=== PATIENT | female | born 1955 | race African-American/Black ===

== ENCOUNTER 2019-09-04 16:33 | Inpatient (IN) | payer OTHER, MEDICARE ==
[~2019-09-04] VITALS: Ht 170.2 cm; Wt 90.3 kg
[~2019-09-04 16:33] MED LIST: ACYCLOVIR 400400 MG PO; ALPRAZOLAM 0.50.5 MG; AMARYL2 MG; AMBIEN 10 MG TA10 MG; ANASPAZ0.125 MG; ASPIRIN EC81 M1; CELEXA 20 MG TA20 M1; CLARITIN10 M2; DOXYCYCLINE 10100 M1; FLUCONAZOLE 10100 MG; GLUCOPHAGE1000 MG; GYNODIOL0.5 MG PO; HYDROXYCHLOROQ200 M1; JANUVIA100 MG; LEVAQUIN 500 M500 M2; LEVOTHYROXINE0.05 MG; MICONAZOLE 7100 MG; MULTIVITAMINS1 EAC7; NORCO 7.5-3251 EACH PO; PRILOSEC 20 MG20 MG; PYRIDIUM100 MG; SIMVASTATIN20 MG; SUPRAX400 MG PO
[2019-09-04 16:37] VITALS: BP 140/56
[2019-09-04 17:02] LABS: ABSOLUTE NEUTROPHILS 12.9 thou/uL (1.4-8.2); BASOPHILS 0.6 % (0.0-2.0); EOSINOPHILS 0.3 % (0.0-3.0); HEMATOCRIT 41.2 % (37.0-47.0); HEMOGLOBIN 13.2 gm/dL (12.0-15.0); MCH 29.2 pg (26.0-34.0); MCHC 32.1 g/dL (28.0-37.0); MCV 90.9 fL (80.0-100.0); MONOCYTES 5.3 % (1.0-8.0); PLATELET COUNT 231 thou/uL (150-400); POLYS 86.8 % (36.0-66.0); RBC 4.53 mil/uL (4.20-5.00); RDW 13.7 % (10.5-14.5); WBC 14.9 thou/uL (4.0-11.0)
[2019-09-04 17:09] LABS: CALCIUM 8.5 mg/dL (8.5-10.1); CREATININE 0.7 mg/dL (0.6-1.0); POTASSIUM 3.8 mmol/L (3.5-5.1)
[2019-09-04 17:15] LABS: ALBUMIN 3.5 g/dL (3.4-5.0); TOTAL BILIRUBIN 0.4 mg/dL (<0.1-1.0); TOTAL PROTEIN 7.7 g/dL (6.4-8.2)
[2019-09-04 19:39] VITALS: BP 135/63
[2019-09-04] MEDS ORDERED: ABILIFY 2 MG2 M1 PO (19:57)
[2019-09-04] MEDS ORDERED: C-10001000 MG PO (19:57)
[2019-09-04] MEDS ORDERED: LIPITOR10 MG PO (19:58)
[2019-09-04] MEDS ORDERED: CEFPODOXIME PR100 MG PO (19:58)
[2019-09-04] MEDS ORDERED: CEPHALEXIN500 MG PO (19:59)
[2019-09-04] MEDS ORDERED: CLOBETASOL EMOL15 GM TOP (20:00)
[2019-09-04] MEDS ORDERED: CYANOCOBALAMIN IM (20:02)
[2019-09-04] MEDS ORDERED: CYCLOBENZAPRINE5 MG PO (20:03)
[2019-09-04] MEDS ORDERED: DULOXETINE HCL60 MG PO (20:04)
[2019-09-04] MEDS ORDERED: D MANNOSE PO (20:04)
[2019-09-04 20:05] VITALS: BP 135/63
[2019-09-04] MEDS ORDERED: NEXIUM40 MG PO (20:05)
[2019-09-04] MEDS ORDERED: ESTRACE1 MG PO (20:06)
[2019-09-04] MEDS ORDERED: ACID REDUCER20 MG PO (20:08)
[2019-09-04] MEDS ORDERED: ESTRACE42.5 GM VAG (20:08)
[2019-09-04] MEDS ORDERED: FENOFIBRATE145 M1 PO (20:09)
[2019-09-04] MEDS ORDERED: FISH OIL 1,0001 EAC9 PO (20:10)
[2019-09-04 20:11] LABS: URINE BILIRUBIN NEGATIVE (Negative); URINE BLOOD NEGATIVE (Negative); URINE CLARITY CLEAR; URINE COLOR YELLOW; URINE GLUCOSE-RANDOM* NEGATIVE (Negative); URINE KETONES NEGATIVE (Negative); URINE LEUKOCYTES-REFLEX 2+ (Negative); URINE NITRITE-REFLEX POSITIVE (Negative); URINE PROTEIN (DIPSTICK) NEGATIVE (Negative); URINE UROBILINOGEN 0.2 E.U./dl (0.2-1.0)
[2019-09-04] MEDS ORDERED: NEURONTIN100 MG PO (20:11)
[2019-09-04] MEDS ORDERED: MUCUS ER600 M1 PO (20:13)
[2019-09-04] MEDS ORDERED: BIOTIN800 MCG PO (20:14)
[2019-09-04] MEDS ORDERED: PLAQUENIL200 MG PO (20:14)
[2019-09-04] MEDS ORDERED: HYDROXYZINE HCL25 M2 PO (20:15)
[2019-09-04] MEDS ORDERED: OCTAGAM 10% VIA20 ML IV (20:19)
[2019-09-04] MEDS ORDERED: LEVO-T25 MCG PO (20:20)
[2019-09-04] MEDS ORDERED: LINZESS290 MCG PO (20:22)
[2019-09-04] MEDS ORDERED: HIPREX1 GM PO (20:23)
[2019-09-04 20:24] VITALS: BP 148/66
[2019-09-04] MEDS ORDERED: URIBEL CAPSULE1 EACH PO (20:24)
[2019-09-04] MEDS ORDERED: MILK OF MA2400 MG/11 PO (20:25)
[2019-09-04] MEDS ORDERED: OXYBUTYNIN 5 MG5 M2 PO (20:26)
[2019-09-04] MEDS ORDERED: SINGULAIR 10 MG10 M1 PO (20:26)
[2019-09-04] MEDS ORDERED: PYRIDIUM200 MG PO (20:28)
[2019-09-04] MEDS ORDERED: OZEMPIC0.25 MG/0. SUBQ (20:28)
[2019-09-04] MEDS ORDERED: RESTASIS1 EACH OPHTHALMIC (20:29)
[2019-09-04] MEDS ORDERED: ZANTAC 150MG T150 M1 PO (20:29)
[2019-09-04] MEDS ORDERED: QUINAPRIL HCL20 MG PO (20:29)
[2019-09-04] MEDS ORDERED: SUPER THERAVIT1 EACH PO (20:30)
[2019-09-04] MEDS ORDERED: VICTOZA 3-0.6 MG/0.1 SUBQ (20:30)
[2019-09-04] MEDS ORDERED: AMBIEN 10 MG TA10 MG PO (20:31)
[2019-09-04 20:35] LABS: CASTS None Seen /LPF (None Seen); SQUAMOUS 4-10 Moderate /LPF (0-3); WBC CLUMPS Moderate (None Seen)
[2019-09-04 20:36] LABS: URINE RBC 0-2 Rare /HPF (0-2)
[2019-09-04 20:37] LABS: CRYSTALS None Seen /LPF (None Seen)
[2019-09-04 23:02] LABS: PROTIME 9.8 Seconds (9.3-11.4)
[2019-09-05] VITALS (10 sets, daily range): BP systolic 106–131; BP diastolic 51–78
--- NOTE | 2019-09-05 03:40 | NUR ---
PT ARRIVED ON UNIT FROM ER AT 2030. FROM HOME ADMITTED WITH APPENDICITIS. PLAN FOR LAP APPY 09/05. DILAUDID PROVIDING PAIN RELIEF. ZOFRAN NAUSEA RELIEF. AMBULATING TO BATHROOM INDEPENDENTLY. RESTING COMFORTABLY. CALL LIGHT WITHIN REACH. WILL CONTINUE TO PROVIDE FREQUENT OBSERVATION.
[2019-09-05 05:37] LABS: HEMATOCRIT 40.2 % (37.0-47.0); MCH 29.1 pg (26.0-34.0); MCHC 32.3 g/dL (28.0-37.0); RBC 4.47 mil/uL (4.20-5.00); RDW 13.6 % (10.5-14.5); WBC 15.2 thou/uL (4.0-11.0)
[2019-09-05 05:44] LABS: ALBUMIN 3.2 g/dL (3.4-5.0); CALCIUM 8.8 mg/dL (8.5-10.1); CREATININE 0.6 mg/dL (0.6-1.0); MAGNESIUM 2.5 mg/dL (1.8-2.4); POTASSIUM 4.1 mmol/L (3.5-5.1)
--- NOTE | 2019-09-05 11:25 | NUR ---
PT ALERT XS 4. PT AMBULATORY W/O ASSISTIVE DEVICES TOOK SHOWER THIS AM. PT TO HAVE APPENDECTOMY THIS AFTERNOON AT 1500 PT REMAINS NPO.
--- NOTE | 2019-09-05 13:41 | NUR ---
PT TAKEN TO PRE-OP FOR APPENDECTOMY AT THIS TIME NO PAIN OR RESP DISTRESS.
--- NOTE | 2019-09-05 13:45 | NUR ---
CALLED DR DOZIER AND HE SAID OKAY TO GIVE IV FAMOTIDINE AND IV ABT.
--- NOTE | 2019-09-05 17:00 | NUR ---
ASSESSMENT-PT LIVES AT HOME WITH HER . BOTH ARE INDEPENDENT. PT VOICES NO CONCERNS RELATED TO DC AT THIS TIME ONCE MEDICALLY READY. PT HAVING LAP APPE THIS AFTERNOON. NO DC NEEDS ANTICIPATED.
[2019-09-05 19:37] LABS: HEMATOCRIT 39.3 % (37.0-47.0); HEMOGLOBIN 12.7 gm/dL (12.0-15.0); MCH 28.9 pg (26.0-34.0); MCHC 32.2 g/dL (28.0-37.0); MCV 89.6 fL (80.0-100.0); RBC 4.39 mil/uL (4.20-5.00); RDW 13.9 % (10.5-14.5); WBC 18.9 thou/uL (4.0-11.0)
--- NOTE | 2019-09-05 19:47 | NUR ---
AT THIS TIME PATIENT IS STILL IN SURGERY. AND SISTER WAITING IN HER ROOM.
[2019-09-05 19:55] LABS: ALBUMIN 2.5 g/dL (3.4-5.0); CALCIUM 8.4 mg/dL (8.5-10.1); CREATININE 0.6 mg/dL (0.6-1.0); PHOSPHORUS 3.6 mg/dL (2.5-4.9)
[2019-09-05 20:04] LABS: POTASSIUM 4.4 mmol/L (3.5-5.1)
--- NOTE | 2019-09-05 20:19 | NUR ---
DR DOZIER HERE AND EXPLAINED THAT PATIENT WAS MOVED TO ICU TO AND SISTER.
[2019-09-06] VITALS (10 sets, daily range): BP systolic 82–138; BP diastolic 46–67
[2019-09-06 05:51] LABS: HEMATOCRIT 36.4 % (37.0-47.0); HEMOGLOBIN 11.6 gm/dL (12.0-15.0); MCH 28.9 pg (26.0-34.0); MCHC 31.8 g/dL (28.0-37.0); MCV 90.9 fL (80.0-100.0); RBC 4.01 mil/uL (4.20-5.00); WBC 15.4 thou/uL (4.0-11.0)
[2019-09-06 06:06] LABS: ALBUMIN 2.3 g/dL (3.4-5.0); CALCIUM 8.1 mg/dL (8.5-10.1); CREATININE 0.9 mg/dL (0.6-1.0); PHOSPHORUS 4.2 mg/dL (2.5-4.9); POTASSIUM 4.8 mmol/L (3.5-5.1)
--- NOTE | 2019-09-06 09:46 | EKG ---
[address] [place] [address] ELECTROCARDIOGRAM REPORT Name: JOY ANDERSON Room #: 245-P ADM IN M.R.#: [id number] Admission: 09/04/19 Attend Phys: Berto Kemp MD Discharge: Date of : 59 Report #: [id number] THIS REPORT FOR: //name// [facility] ED Test Date: 2019-09-04 Test Time: 17:41:46 Pat Name: JOY ANDERSON Department: Room: [facility] Gender: F [employer]: ZACARIAS : 1955 Requested By: Omaira Flower Order Number: [id number] MD: Temo Fowler Measurements Intervals [place] Rate: 64 P: 51 [place]: 194 QRS: 52 QRSD: 95 T: 66 QT: 432 QTc: 446 Interpretive Statements Sinus rhythm No significant abnormality No previous ECG available for comparison Electronically Signed On 09-06-2019 9:46:02 LINE DANCER by Temo Fowler [email or web address] <ELECTRONICALLY SIGNED> By: Temo Fowler MD, [facility] 09/06/19 0946 1741 1741 Temo Fowler MD, FACC /EPI
--- NOTE | 2019-09-06 10:04 | O ---
[address] [address] OPERATIVE REPORT Name: JOY ANDERSON Room #: 245-P ADM IN M.R.#: [id number] Admission: 09/04/19 Attend Phys: Berto Kemp MD Discharge: Date of : 59 Report #: [id number] THIS REPORT FOR: //name// CC: Oleg Hair DATE OF SERVICE: 09/05/2019 PROCEDURES PERFORMED: 1. Laparoscopic lysis of adhesions for greater than 1 hour. 2. Laparoscopic converted to open appendectomy. 3. Open lysis of adhesions for greater than 30 minutes. 4. Segment 5 liver mass wedge biopsy. PREOPERATIVE DIAGNOSES: 1. Acute appendicitis. 2. Hypogammaglobulinemia. 3. Sjogren's syndrome. 4. Diabetes mellitus. 5. Morbid obesity. POSTOPERATIVE DIAGNOSES: 1. Severe nonperforated acute appendicitis with several fecalith. 2. Severe intra-abdominal adhesions. 3. Segment 5 liver mass. SURGEON: Dr. Collins Pierre. PHARMACIST HOSPITAL: None. ANESTHESIA: 1. General 2. Local. ESTIMATED BLOOD LOSS: 600 mL. COMPLICATIONS: None. SPECIMENS: 1. Appendix. 2. Segment 5 liver mass wedge biopsy sent for frozen. INDICATIONS: The patient is a very pleasant lady with acute appendicitis identified on CT scan. The patient has immunosuppression from the above-stated diseases. She was consented for laparoscopic appendectomy, possible open. [address] [address] OPERATIVE REPORT Name: JOY ANDERSON Room #: 245-P [facility] IN M.R.#: [id number] Admission: 09/04/19 Attend Phys: Berto Kemp MD Discharge: Date of : 59 Report #: [id number] The risks, benefits, and alternatives of the procedure were discussed with the patient preoperatively. The risks discussed included but were not limited to the risk of bleeding, infection, wound infection, postoperative abscess, postoperative staple line leak, conversion to open, damage to any intraabdominal anatomy, need for further resection such as ileocecectomy or right hemicolectomy, damage to small bowel, large bowel, kidney, liver or spleen, blood vessels, nerves, etc., need for further hospitalization, need for future hospitalization, need for future procedures, postoperative ileus, anesthesia (cardiac, pulmonary and neurologic type complications), and . The patient had the opportunity to ask questions. All questions were answered to the best of my ability. At the end of the discussion, the patient wished to proceed with the surgery. DESCRIPTION OF PROCEDURE: After informed consent was obtained as above, the patient was taken to the operating room and placed in the supine position. General anesthesia was induced. Preprocedure antibiotics were administered. Her anterior abdomen was prepped and draped in the usual sterile fashion and a timeout was performed. A 5-mm supraumbilical incision was made. The Veress needle was inserted with successful creation of a pneumoperitoneum with one attempt. A 5-mm port was passed. This was successful with one attempt. Lighted laparoscope was inserted and immediately it was apparent that the patient had an abdomen full of adhesions. The right upper quadrant had the free space. I placed a 5-mm port there. Using a mixture of blunt dissection and laparoscopic scissors, I began taking down the adhesions between the omentum, small bowel, and anterior abdominal peritoneal cavity lining. The patient had very dense adhesions in the midline in the lower abdomen. The adhesions were taken down towards the suprapubic region far enough to place a third 5-mm port. The procedure continued by lysing adhesions to get down to the right lower quadrant where the cecum laid. Once to the cecum, there were dense adhesions between the small bowel and the cecum as well as the small bowel on the lateral sidewall and the typical adhesions between the cecum and the lateral sidewall. Careful dissection was employed to free up the cecum as best as possible. However, the appendix was still not in visualization. The cecum was mobilized by taking down the white line of Toldt laterally and looking for the appendix in a retrocecal position. On the CT scan the appendix was located at the normal position, coming off the end of the cecum, and projecting medially. The appendix was able to be identified directly underneath the terminal ileum; however, it was extremely friable and difficult to visualize given its retrocecal position and its position directly underneath the terminal ileum. We had spent over an hour lysing adhesions and we were not making any progress laparoscopically with the appendectomy. Therefore, the decision was made to convert to an open procedure. A midline exploratory laparotomy incision was made. The incision was carried down to the fascia using electrocautery. The fasciotomy was extended cephalad and medially. The patient had dense adhesions along the anterior abdominal wall [address] [address] OPERATIVE REPORT Name: JOY ANDERSON KITTY Room #: 245-P [facility] IN M.R.#: [id number] Admission: 09/04/19 Attend Phys: Berto Kemp MD Discharge: Date of : 59 Report #: [id number] in this region. We had to use extreme caution not to damage any bowel. The adhesions were taken down in an open fashion using Metzenbaum scissors and retraction. We did take down adhesions in order to extend our fasciotomy in both directions. These were very dense, thick adhesions. We were successful in lysing the adhesions without injuring any bowel. The Bookwalter retractor was set up. The cecum was brought into the field of view and the appendix was palpable. We were able to pull the appendix up from underneath the cecum. The appendix had perforated with the manipulation of the surgery. I do not believe that there was any preoperative perforation or abscess. It did perforate, I think only with surgical manipulation. The appendix was in the process to be immobilized when there was a sudden onset of a small pulsatile arterial bleeder from the mesentery. This was difficult to visualize given that it was deep within the mesentery, not easy to see. There was an artery and a vein bleeding, which further exacerbated the difficulty of visualizing it. The artery and vein was within the cavity within the mesentery, making it difficult. Due to not wanting to ligate a large branch or cause any worsening bleeding, this region was packed and pressure was held. The pressure was held for 5 minutes and the bleeding did stop. Pressure was held for 5 more minutes to be safe. The packs were left in place. The packs were eventually removed and the region was completely hemostatic and new packs were placed just to be safe, while we advanced the procedure. The mesoappendix was clamped with a right angle, transected, and suture ligated with silk suture. The appendix was perforated in the body; however, the base of the appendix was intact. It was successfully stapled with a laparoscopic JERMAINE blue load stapler. Staple line was intact. It was oversewn with Vicryl suture to be safe. The right lower quadrant was then irrigated and suctioned out with copious amounts of warm irrigation. Hemostasis was definitely present. There was no gross contamination of the right lower quadrant. All free fluid was suctioned out. The abdominal cavity was explored and there was identified to be a firm white mass on segment 5 of the liver; therefore, frozen section was obtained by using electrocautery and a 15 blade scalpel. The surface of the liver was then cauterized. Hemostasis was present. Surgicel was placed on the biopsy site that we never had any serious bleeding from this biopsy. Hemostasis was present at the liver and at the right lower quadrant where appendectomy was performed. A drain was placed through the right upper quadrant port site incision, passed down into the right lower quadrant around the cecum and into the pelvis. The drain was sutured into place using nylon stitch. The abdomen was then irrigated out one more time. Hemostasis was ensured. The abdomen was definitely hemostatic. The fascia was then closed in the midline using #1 PDS in a continuous running fashion. The subcutaneous tissue was irrigated out. The skin was reapproximated using lindsey. The Prevena wound VAC was applied. The [address] [address] OPERATIVE REPORT Name: JOY ANDERSON Room #: 245-P [facility] IN M.R.#: [id number] Admission: 09/04/19 Attend Phys: Berto Kemp MD Discharge: Date of : 59 Report #: [id number] patient tolerated the procedure well. She was stable throughout. She was extubated and transferred to the PACU in stable condition. <ELECTRONICALLY SIGNED> By: Collins Pierre MD 09/06/19 1004 33 18 Collins Pierre MD /nt
--- NOTE | 2019-09-06 10:04 | HC ---
[facility] [place] [address] CONSULTATION Name: JOY ANDERSON Room #: 245-P ADM IN M.R.#: [id number] Admission: 09/04/19 Attend Phys: Berto Kemp MD Discharge: Date of : 59 Report #: [id number] THIS REPORT FOR: //name// CC: Oleg Hair DATE OF SERVICE: 09/05/2019 CONSULTING PHYSICIAN: Dr. Pierre. REASON FOR CONSULTATION: Appendicitis. ASSESSMENT: 1. Acute appendicitis. 2. Sjogren's syndrome. 3. Hypogammaglobulinemia. 4. Diabetes mellitus. 5. On aspirin. 6. Hyponatremia. RECOMMENDATIONS: 1. Thank you for the consultation. I will follow along. 2. Planning for laparoscopic appendectomy, possible open today. 3. IV antibiotics. 4. IV fluid resuscitation while n.p.o. 5. N.p.o. 6. IV analgesics and antiemetics. 7. Comorbidities per primary team. HISTORY OF PRESENT ILLNESS: The patient is a very pleasant 64-year-old female who presented to the hospital due to right lower quadrant abdominal pain that began late Thursday, early Thursday. Shortly after the pain started, she began vomiting. The pain was so severe that woke her up from sleep. It is constant and located in the right lower quadrant. She thought it was foot poisoning, so she tried to tough it out; however, the pain got so severe, she could not take it, so she presented to the ER. She was also unable to keep any fluids down. She reports this is the first episode of having any pain like this. She endorses subjective fevers, but denies chills, night sweats, chest pain or shortness of air. She has had regular nonbloody stools. PAST MEDICAL HISTORY: 1. Constipation. 2. Sjogren's syndrome. 3. Hypogammaglobulinemia. She gets IVIG 1 time per month, called [facility]. Her last injection was 2 weeks ago. If she does not receive it, she reports that she gets all types of infections. [facility] [address] [place] [address] CONSULTATION Name: JOY ANDERSON KITTY Room #: 245-P [facility] IN M.R.#: [id number] Admission: 09/04/19 Attend Phys: Berto Kemp MD Discharge: Date of : 59 Report #: [id number] 4. Diabetes mellitus. 5. Hyperlipidemia. 6. On aspirin 325 mg. PAST SURGICAL HISTORY: 1. Colonoscopy, 3 years ago, normal. 2. Hysterectomy. 3. Bilateral salpingo-oophorectomy. 4. Splint procedure. SOCIAL HISTORY: Denies use of alcohol, tobacco or recreational drugs. 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 FAMILY HISTORY: Denies coagulopathy or malignancy. REVIEW OF SYSTEMS: CONSTITUTIONAL: No fever. No chills. HEENT: Denies blurring of vision, double vision, headaches, hearing loss, sinus drainage or sore throat. Denies blurring of vision, double vision, headaches, hearing loss, sinus drainage or sore throat. CARDIOVASCULAR: Denies chest pain, palpitations, orthopnea or paroxysmal nocturnal dyspnea. RESPIRATORY: Denies cough, wheezing, hemoptysis, or shortness of air. GASTROINTESTINAL: See above and below. GENITOURINARY: Denies dysuria or hematuria or kidney stones. No urinary frequency, urgency or incontinence. Denies dysuria or hematuria or kidney stones. No urinary frequency, urgency or incontinence. MUSCULOSKELETAL: No joint pain. No muscle pain. NEUROLOGICAL: Denies tremor, stroke or seizure. Denies tremor, stroke or seizure. HEMATOLOGIC AND LYMPHATICS: Denies easy bruising, easy bleeding or enlarged lymph nodes. SKIN: No rash or ulceration. ENDOCRINE: No heat or cold intolerance PSYCHIATRIC: Denies depression, anxiety, or schizophrenia. IMMUNE: See above and below. PHYSICAL EXAMINATION: VITAL SIGNS: Temperature 36.9, pulse 62, respiratory rate 20, blood pressure 148/66, pulse ox is 97% on room air. GENERAL: No apparent distress, alert and oriented x3. HEENT: PERRLA, EOMI, MMM, NCAT NECK: Supple. No LAD CARDIOVASCULAR: Regular rhythm and rate. Hemodynamically stable. Normal capillary refill. Regular rhythm and rate. Hemodynamically stable. Normal capillary refill. [address] [address] CONSULTATION Name: JOY ANDERSON Room #: 245-P [facility] IN M.R.#: [id number] Admission: 09/04/19 Attend Phys: Berto Kemp MD Discharge: Date of : 59 Report #: [id number] PULMONARY: Nonlabored. Clear to auscultation bilaterally ABDOMEN: Soft, tender to palpation in the right lower quadrant and in the left lower quadrant. No guarding, rebound or rigidity. No hernias appreciated. She is obese. EXTREMITIES: Calves soft, nontender, no edema. SKIN: No rashes or bruises. PSYCHIATRIC: Normal mood and affect Normal mood and affect NEUROLOGICAL: Grossly intact. CN II-XII grossly intact. MUSCULOSKELETAL: 5/5 strength in upper extremities and lower extremities bilaterally LYMPHATICS: No cervical, inguinal, or supraclavicular lymphadenopathy. LABORATORY DATA: Sodium 125, potassium 3.8, creatinine 0.7, magnesium 1.6, total bilirubin 0.4, AST is 19, ALT is 30, alkaline phosphatase is 65, lipase is 58. White blood count is 14.9, hemoglobin is 13.2, hematocrit is 41.2, platelet is 231. IMAGING: CT of the abdomen and pelvis, impression: 1. Acute appendicitis without evidence of perforation or abscess. The appendix measures 1.7 cm in diameter with multiple appendicolith. 2. A 5 mm right middle lobe pulmonary nodule was noted. If at low risk, no further imaging followup necessary. If at high risk, the followup noncontrast chest CT is recommended in 1 year based on the 2017 questionnaire criteria. <ELECTRONICALLY SIGNED> By: Collins Pierre MD 09/06/19 1004 0837 0914 Collins Pierre MD /nt
--- NOTE | 2019-09-06 12:00 | NUR ---
PATIENT ADMITTED TO UNIT AT THIS TIME. STILL COMPLAINING OF PAIN TO MID ABDOMEN. MID ABDOMINAL INCISION DRESSING INTACT. DRAINING SOME BLOOD. SHE IS ALERT ORIENTED X4. WILL CONT WITH PLAN OF CARE
[2019-09-07 00:33] VITALS: BP 108/68
[2019-09-07 05:27] VITALS: BP 142/80
--- NOTE | 2019-09-07 05:27 | NUR ---
ASSUMED CARE AROUND 1914. AXOX4. PREVENA VAC TO MID ABD AND RUBIO DRAIN INTACT DRAINING SS DRAINAGE. PERSISTENT PAIN, MANAGED PER MD ORDER. AMBULATED ON THE UNIT WITH . TOLERATED FAIR THEN STARTED C/O MALAISE. ADVISE TO SPACE OUT ACITIVITIES AND TAKE BREAKS. PT VERBALIZES UNDERSTANDING. NO S/S ACUTE DISTRESS NOTED OR REPORTED AT THIS TIME. WILL CONT TO MONITOR FOR ANY CHANGES IN CONDITION.
[2019-09-07 06:19] LABS: HEMATOCRIT 31.8 % (37.0-47.0); MCH 29.1 pg (26.0-34.0); MCHC 31.5 g/dL (28.0-37.0); MCV 92.1 fL (80.0-100.0); RBC 3.45 mil/uL (4.20-5.00); RDW 14.2 % (10.5-14.5)
[2019-09-07 06:34] LABS: ALBUMIN 2.2 g/dL (3.4-5.0); CALCIUM 8.8 mg/dL (8.5-10.1); CREATININE 0.7 mg/dL (0.6-1.0); PHOSPHORUS 2.6 mg/dL (2.5-4.9); POTASSIUM 4.2 mmol/L (3.5-5.1)
[2019-09-07 08:19] VITALS: BP 116/65
[2019-09-07 17:46] VITALS: BP 107/61
--- NOTE | 2019-09-07 19:02 | NUR ---
PATIENT DOING WELL TODAY. MEDICATED WITH HYDROCODONE X 2. SCHEDULED TYLENOL GIVEN. VOIDING WITHOUT DIFFICULTY. NEW ORDER FOR CLEAR LIQUIDS THIS AFTERNOON. DRANK SOME CHICKEN BROTH, JELLO, POPSICLE, APPLE JUICE AND TOLERATING WELL. VERY HYPO BOWELL SOUNDS HEARD. DENIED FLATUS. MOM GIVEN WITH NO RESULTS. AMBULATED IN MENG X 2. SAT UP IN CHAIR X 2. UP TO BATHROOM WITH STANDBY ASSIST WITH IV PUMP. IN GOOD SPIRITS. HAVE MONITORED CLOSELY.
[2019-09-07 19:17] VITALS: BP 138/63
--- NOTE | 2019-09-08 07:35 | NUR ---
ASSUMED CARE AROUND 1914. AXOX4. PREVENA VAC TO MID ABD CDI. RUBIO DRAIN INTACT DRAINING SS DRAIN. PERSISTENT PAIN TO ABD. KPAD ORDERED. NO S/S ACUTE DISTRESS NOTED OR REPORTED AT THIS TIME. CARE TRANSFERRED TO INCOMING RN AT THIS TIME.
[2019-09-08 08:10] VITALS: BP 126/67
[2019-09-08 13:17] LABS: HEMATOCRIT 29.2 % (37.0-47.0); HEMOGLOBIN 9.5 gm/dL (12.0-15.0); MCH 29.3 pg (26.0-34.0); MCHC 32.5 g/dL (28.0-37.0); MCV 90.1 fL (80.0-100.0); RBC 3.24 mil/uL (4.20-5.00); RDW 14.2 % (10.5-14.5); WBC 10.2 thou/uL (4.0-11.0)
[2019-09-08 13:44] LABS: ALBUMIN 2.1 g/dL (3.4-5.0); CALCIUM 9.2 mg/dL (8.5-10.1); CREATININE 0.6 mg/dL (0.6-1.0); PHOSPHORUS 2.4 mg/dL (2.5-4.9); POTASSIUM 3.5 mmol/L (3.5-5.1)
--- NOTE | 2019-09-08 15:17 | NUR ---
CARE TEAM INDICATED THAT PT IS PROGRESSING SLOWLY. IT IS ANTICIPATED THAT PT WILL HAVE NO NEEDS UPON DC. CM TO FOLLOW SHOULD ANY DC NEEDS ARISE.
[2019-09-08 15:27] VITALS: BP 108/64
--- NOTE | 2019-09-08 17:33 | NUR ---
PT A&OX4, VSS, PAIN IN BLE. PAIN MEDICATION GIVEN TO MANAGE. WOUND DRESSING CHANGE COMPLETED. PATIENT WENT DOWN TO SURGERY BUT REFUSED TODAY. FAMILY IN TODAY WITH CONCERS, DOCTOR NOTIFIED AND FAMILY AGREES TO MEET DOCTOR AT 9 AM. PATIENT IS FLAT AND STATED TO THIS NURSE, " HE CANT BELIEVE HE LET HIMSELF GET LIKE THIS." NO SIGNS OF DISTRESS. WILL CONTINUE TO MONITOR.
--- NOTE | 2019-09-08 17:57 | NUR ---
PT A&OX4, VSS, PAIN IN ABDOMEN. PT DENIES N/V/D. PATIENT HAD BM TODAY. DRAINS CHECKED AND RUBIO EMPTIED. PATIENT TOLERATED CLEAR LIQUIDS AND ADVANCED TO FULL. WILL CONTINUE TO MONITOR, NO SIGNS OF DISTRESS.
[2019-09-08 19:25] VITALS: BP 129/70
--- NOTE | 2019-09-09 05:29 | NUR ---
Assessments completed. pt a&ox4. independent in room. walks in hallway 2x with . pain controlled with current regimen. pt is hoping to advanced diet today and possibly be d/c home. v/s stable. no s/s of distress. will cont to monitor
--- NOTE | 2019-09-09 08:10 | NUR ---
ASSUMED CARE OF PATIENT APPROX 36130. PT A&OX4, VSS, PAIN IN ABDOMEN. APPROX 0800 PATIENT C/O OF SOA. VITALS WNL, SATS 96%, LUNGS CLEAR, NON PRODUCTIVE COUGH. NASAL CANNULA AT BEDSIDE. WILL CONTINUE TO MONITOR.
[2019-09-09 08:19] VITALS: BP 123/70
[2019-09-09 09:34] LABS: HEMATOCRIT 27.4 % (37.0-47.0); HEMOGLOBIN 8.9 gm/dL (12.0-15.0); MCH 29.2 pg (26.0-34.0); MCHC 32.5 g/dL (28.0-37.0); RBC 3.04 mil/uL (4.20-5.00); RDW 14.1 % (10.5-14.5); WBC 8.5 thou/uL (4.0-11.0)
[2019-09-09 09:58] LABS: CALCIUM 8.6 mg/dL (8.5-10.1); CREATININE 0.5 mg/dL (0.6-1.0); PHOSPHORUS 3.3 mg/dL (2.5-4.9); POTASSIUM 3.4 mmol/L (3.5-5.1)
--- NOTE | 2019-09-09 11:07 | PATH ---
[facility] [place] [address] PATHOLOGY RPT PROCEDURE Name: JOY BUENROSTRO Room #: 463-P ADM IN M.R.#: [id number] Admission: 09/04/19 Date of : 59 Discharge: Report #: [id number] Path Case #: [id number] [facility] Accession Number: [id number] . 01 Material submitted: . PART A: liver - LIVER BIOPSY,FS PART B: appendix - APPENDIX,FS . 01 Clinical history: . Appendicitis . 02 Frozen section diagnosis: . FROZEN SECTION DIAGNOSIS; A1FS. Liver "liver biopsy": - Atypical glands, cannot rule out malignancy. . B1FS. Appendix "appendectomy": - Inflamed swollen appendix with whitish areas final diagnosis after permanent sections. . These findings were discussed with Dr. Lachelle Pierre and a written report was placed in the patient's chart. (SHA:[facility]; 09/06/2019) . FROZEN SECTION GROSS DESCRIPTION: A. Specimen received fresh labeled "Joy Buenrostro #2 liver biopsy" consists of two pieces of tissue measuring 0.6 x 0.4 x 0.4 cm. In these pieces of tissue are two firm white areas that measure up to 0.5 cm. This specimen is entirely frozen and submitted in cassette labeled A1. . B. Specimen received fresh labeled "Joy Buenrostro Appendix" consists of an appendix that measures 6.0 x 3.0 x 2.0 cm. The outer surface has few adhesions. The appendix appears markedly swollen and hemorrhagic. A suture is present identifying the appendiceal opening. The entire specimen is inked with black ink. On serial section there is a hemorrhagic lumen with surrounding indurated fibroadipose tissue. (SHA:belen; 09/06/2019) . Frozen section performed at [facility], [address] [place], [place] [address] , [place] [address]. ZSA/QTP . 02 Diagnosis: A. Liver, wedge biopsy: - Liver parenchyma with mild chronic inflammation, mild to moderate steatosis, and focal fibrotic nodule, 0.5 cm. . B. [address], [address] [place] [address] PATHOLOGY RPT PROCEDURE Name: JOY BUENROSTRO Room #: 463-P ADM IN M.R.#: [id number] Admission: 09/04/19 Date of : 59 Discharge: Report #: [id number] Path Case #: [id number] - Acute appendicitis and periappendicitis. . (TIGIST:mercedez; 09/08/2019) MBR 09/08/2019 1232 Local . 02 Electronically signed: . Missael Gramajo MD, Pathologist NPI- [id number] . 01 Gross description: . PLEASE SEE FROZEN SECTION FOR GROSS DESCRIPTION . B. Steel Turner sections are submitted in B1-B2. (SDY; 09/06/2019) SYU/QTP 09/06/2019 1502 Local . 02 Pathologist provided ICD-10: K76.0, K76.9, K35.80 . 02 CPT . 796181, 958494, 957220, [id number] Specimen Comment: A courtesy copy of this report has been sent to [phone] Specimen Comment: [phone] Specimen Comment: Report sent to / DR PACHECO Performed at: [address] [facility], [place], [place] [id number] MD Constantin Moses MD Phone: [phone] Performed at: [address] [facility] [id number] MD Gely Santiago MD Phone: [phone]
--- NOTE | 2019-09-09 14:45 | NUR ---
Nutrition: Received RD consult for suggestions as pt with poor intake on full liquids, but also lactose intolerant. Admit: appendicitis. S/p lap converted to open appendectomy on 09/05. Minimal appetite to be expected postsurgery. Was on clear liquids 09/06, advanced to full liquids last night. Pt cannot do milk, no ice cream and no tomato soup. Does agree to do yogurt and plan to trial variety of Ensure drinks tonight at dinner with Apple Ensure Clear and Vanilla Ensure Enlive as these supplements are suitable for those with lactose intolerance. Will add both to dinner and informed pt to call kitchen tomorrow letting her know her desired preference to continue several times per day. Anticipate appetite improvement w/ recovery. Low nutrition risk otherwise.
[2019-09-09 15:24] VITALS: BP 117/74
[2019-09-09 20:02] VITALS: BP 108/65
--- NOTE | 2019-09-10 03:52 | NUR ---
Assessments completed. pt a&ox4. no changes overnight. pain controlled with current regimen. pt stated that she usually has questions to ask the doctors in the morning but because they come in so early and she's usually still sleepy, she is unable to ask those questions. nurse wrote some of the questions on pt's white board. no s/s of distress. will cont to monitor
[2019-09-10 07:52] VITALS: BP 136/77
[2019-09-10 15:47] VITALS: BP 120/62
--- NOTE | 2019-09-10 17:59 | NUR ---
PT ALERT AND ORIENTED TIMES FOUR. VSS, IVF INFUSING PER ORDER. PT C/O PAIN PRN PAIN MEDICATIONS GIVEN WITH SOME RELIEF. RUBIO DRAIN TO BULB SUCTION. MIDLINE PREVENA INTACT. PT TOLERATED REG DIET. PT UP AMBULATING AROUND THE UNIT WITH STEADY GAIT. PT SLOWLY PROGRESSING TOWRADS POC GOALS.
[2019-09-10 19:10] VITALS: BP 121/72
--- NOTE | 2019-09-10 22:09 | NUR ---
PATIENT TRANSFERED FROM ROOM 4 AT 1850 WALKING IN THE COMPANY OF HER AND PIPELINER FROM . DENIES PAIN. ALERT AND ORIENTED X4. PLEASANT AND COOPERATIVE.
--- NOTE | 2019-09-11 03:20 | NUR ---
PATIENT ALERT AND ORIENTED X4. UP TO BATHROOM W/O ASSISTANCE. NO C/O NAUSEA. IVF INFUSING W/O COMPLICATION. AT BEDSIDE UNTIL LATE EVENING. PATIENT ATE FOOD FROM [employer] W/O UPSET. MEDICATGED WITH OXY IR AND SCHEDULED TYLENOL WELL REQUESTED AMBIEN. BS MONITORED PER ORDER. PREVENA DRESSING D/I. DRAINS MONITORED. SLEEPING WELL THROUGHOUT THE NIGHT. PATIENT LOOKING FORWARD TO DISCHARGE. WILL MONITOR.
[2019-09-11 04:32] LABS: HEMATOCRIT 28.9 % (37.0-47.0); HEMOGLOBIN 9.4 gm/dL (12.0-15.0); MCH 29.2 pg (26.0-34.0); MCHC 32.5 g/dL (28.0-37.0); MCV 89.9 fL (80.0-100.0); RBC 3.21 mil/uL (4.20-5.00); RDW 14.3 % (10.5-14.5); WBC 8.1 thou/uL (4.0-11.0)
[2019-09-11 04:51] LABS: CALCIUM 8.9 mg/dL (8.5-10.1); CREATININE 0.7 mg/dL (0.6-1.0); POTASSIUM 3.2 mmol/L (3.5-5.1)
--- NOTE | 2019-09-11 06:27 | NUR ---
PATIENT DOES NOT FEEL GOOD ABOUT GOING HOME TODAY. STILL HAVING PAIN ISSUES, UNABLE TO GET IT UNDER CONTROL TO THE POINT WHERE SHE FEELS COMFORTABLE LEAVING. STILL TAKING IVP DILAUDID ALONG WITH OXY IR AND SCHEDULED TYLENOL. STATED SHE WILL SPEAK WITH THE DOCTOR TODAY ON ROUNDS, HOWEVER, SHE REALLY WANTS TO SPEAK WITH DR. DOZIER.
[2019-09-11 06:58] VITALS: BP 138/79
[2019-09-11 15:15] VITALS: BP 121/68
--- NOTE | 2019-09-11 15:52 | NUR ---
A/O, calm and pleasant; VSS, afebrile; compains of pain in abdomen, pain medication given and worked; Complains of heartburn, Maalox given; patient got up and walked in the hallway by self. Resting in the chairm , with eyes closed and chest up and down. Lab reviewed, will keep monitoring.
[2019-09-11 19:31] VITALS: BP 146/82
--- NOTE | 2019-09-12 06:30 | NUR ---
PATIENT ALERT AND ORIENTED X4. UP ADLIB IN ROOM. MEDICATED FOR PAIN THROUGHOUT THE NIGHT WITH A LITTLE BETTER RESULTS - RATE OF 01/14 TO 02/14. IVF INFUSING W/O COMPLICATION. BS MONITORED PER ORDER. SLEPT BETTER DURING THE NIGHT. RESTING QUIETLY. WILL MONITOR.
[2019-09-12 07:12] VITALS: BP 137/77
--- NOTE | 2019-09-12 09:33 | NUR ---
SW reviewed chart and spoke with nursing and attending physician. Pt [facility] to [facility] from . Pt is progressing towards goals for discharge. Pt will discharge home when medically stable. SW is following to assist as needed with discharge planning.
[2019-09-12] MEDS ORDERED: DIFLUCAN150 MG PO (12:21)
[2019-09-12] MEDS ORDERED: OXYCODONE HCL10 MG PO (12:21)
[2019-09-12] MEDS ORDERED: CEFUROXIME250 MG PO (12:21)
[2019-09-12 13:49] VITALS: BP 137/77
--- NOTE | 2019-09-12 15:16 | NUR ---
ASSUMED CARE OF PATIENT AT 0715, PATIENT ALERT AND ORIENTED X 4. PATIENT UP AD JAZZ. PATIENT C/O PAIN WITH ABDOMEN AREA, SHE RECEIVED OXYCODONE 2 TABLETS AROUND NOON, PAIN LEVEL 7/10, WITH PARTIAL RELIEF 5/10. PATIENT HAS RIGHT FOREARM IV WITH NS AT 80CC/HR, PATIENT RECEIVED 1 IIV ANTIBIOTIC THIS SHIFT. DR FOSTER HERE TO SEE THE PATIENT, WILL DISCHARGE TO HOME WITH SELFCARE. DR DOZIER HERE THIS AM, REMOVED RUBIO DRAIN AND WOUND VAC, APPLIED SURGICAL DRESSING TO ABDOMEN AREA. RIGHT FOREARM IV REMOVED PRIOR TO DISCHARGE. DISCHARGE PAPER WORK AND ALL PERSONAL BELONGINGS SENT WITH THE PATIENT.
[2019-09-13] MEDS ORDERED: OXYCODONE HCL10 MG PO (13:08)
[2019-09-13] MEDS ORDERED: AUGMENTIN 875-1 EACH PO (13:08)
== END 2019-09-12 15:59 | disposition home or self-care (01) | DRG 335 ==
LOC: ER 16:33 → ICU 19:03 → EROBS 19:03 → 4S 19:03 → ICU 09-05 20:04 → 4W 09-06 12:08 → 4N 09-10 18:58 → ENTRNSPT 09-12 15:10 → EDTRNSPTSTS 09-12 15:11 → 4N 09-12 15:59
PROVIDERS: Emergency Medicine; Nurse Practitioner Acute Care; Nurse Practitioner Family; Surgery; ADMIT Hospitalist
PROC: 0D9H00Z Drainage of Cecum with Drainage Device, Open Approach (ICD-10-PCS; principal; 2019-09-05)
PROC: 0WJG4ZZ Inspection of Peritoneal Cavity, Percutaneous Endoscopic Approach (ICD-10-PCS; principal; 2019-09-05)
PROC: 0FB00ZX Excision of Liver, Open Approach, Diagnostic (ICD-10-PCS; principal; 2019-09-05)
PROC: 0DNW0ZZ Release Peritoneum, Open Approach (ICD-10-PCS; principal; 2019-09-05)
PROC: 0DNW4ZZ Release Peritoneum, Percutaneous Endoscopic Approach (ICD-10-PCS; principal; 2019-09-05)
PROC: 0DTJ0ZZ Resection of Appendix, Open Approach (ICD-10-PCS; principal; 2019-09-05)
DX: K35.80 Unspecified acute appendicitis (principal); E43 Unspecified severe protein-calorie malnutrition; E87.1 Hypo-osmolality and hyponatremia; N39.0 Urinary tract infection, site not specified; D80.1 Nonfamilial hypogammaglobulinemia; A18.4 Tuberculosis of skin and subcutaneous tissue; D84.9 Immunodeficiency, unspecified; D62 Acute posthemorrhagic anemia; K56.7 Ileus, unspecified; K66.0 Peritoneal adhesions (postprocedural) (postinfection); E11.9 Type 2 diabetes mellitus without complications; G51.0 Bell's palsy; R91.1 Solitary pulmonary nodule; M35.00 Sjogren syndrome, unspecified; E78.5 Hyperlipidemia, unspecified; E66.01 Morbid (severe) obesity due to excess calories; I10 Essential (primary) hypertension; F32.9 Major depressive disorder, single episode, unspecified; F41.9 Anxiety disorder, unspecified; E03.9 Hypothyroidism, unspecified; E83.42 Hypomagnesemia; K59.00 Constipation, unspecified; R16.0 Hepatomegaly, not elsewhere classified; B96.20 Unspecified Escherichia coli [E. coli] as the cause of diseases classified elsewhere; K76.0 Fatty (change of) liver, not elsewhere classified; E87.6 Hypokalemia; Z79.2 Long term (current) use of antibiotics; Z90.710 Acquired absence of both cervix and uterus; Z79.82 Long term (current) use of aspirin; Z79.84 Long term (current) use of oral hypoglycemic drugs; Z79.899 Other long term (current) drug therapy; Z68.31 Body mass index [BMI] 31.0-31.9, adult; Z90.722 Acquired absence of ovaries, bilateral; Z87.440 Personal history of urinary (tract) infections; Z83.3 Family history of diabetes mellitus; Z82.61 Family history of arthritis; Z82.5 Family history of asthma and other chronic lower respiratory diseases; Z87.891 Personal history of nicotine dependence
CPT/HCPCS: 10047; 10078; 10100; 10790; 50010; 50101; 50249; 50331; 50411; 50455; 50555; 50558; 50739; 50740; 50953; 51412; 51489; 52265; 53307; 53310; 53312; 54022; 54118; 56462; 56524; 56525; 56526; 56668; 62110; 62900; 70005

== ENCOUNTER 2019-09-13 18:32 | Inpatient (IN) | payer OTHER, MEDICARE ==
[~2019-09-13] VITALS: Ht 170.2 cm; Wt 108.4 kg
[2019-09-13 18:32] VITALS: BP 160/76
[~2019-09-13 18:32] MED LIST changes: +ABILIFY 2 MG2 M1 PO; +ACID REDUCER20 MG PO; +AMBIEN 10 MG TA10 MG PO; +AUGMENTIN 875-1 EACH PO; +BIOTIN800 MCG PO; +C-10001000 MG PO; +CEFPODOXIME PR100 MG PO; +CEFUROXIME250 MG PO; +CEPHALEXIN500 MG PO; +CLOBETASOL EMOL15 GM TOP; +CYANOCOBALAMIN IM; +CYCLOBENZAPRINE5 MG PO; +D MANNOSE PO; +DIFLUCAN150 MG PO; +DULOXETINE HCL60 MG PO; +ESTRACE1 MG PO; +ESTRACE42.5 GM VAG; +FENOFIBRATE145 M1 PO; +FISH OIL 1,0001 EAC9 PO; +HIPREX1 GM PO; +HYDROXYZINE HCL25 M2 PO; +LEVO-T25 MCG PO; +LINZESS290 MCG PO; +LIPITOR10 MG PO; +MILK OF MA2400 MG/11 PO; +MUCUS ER600 M1 PO; +NEURONTIN100 MG PO; +NEXIUM40 MG PO; +OCTAGAM 10% VIA20 ML IV; +OXYBUTYNIN 5 MG5 M2 PO; +OXYCODONE HCL10 MG PO; +OZEMPIC0.25 MG/0. SUBQ; +PLAQUENIL200 MG PO; +PYRIDIUM200 MG PO; +QUINAPRIL HCL20 MG PO; +RESTASIS1 EACH OPHTHALMIC; +SINGULAIR 10 MG10 M1 PO; +SUPER THERAVIT1 EACH PO; +URIBEL CAPSULE1 EACH PO; +VICTOZA 3-0.6 MG/0.1 SUBQ; +ZANTAC 150MG T150 M1 PO
[2019-09-13 20:22] LABS: HEMATOCRIT 23.9 % (37.0-47.0); HEMOGLOBIN 7.6 gm/dL (12.0-15.0); MCH 28.8 pg (26.0-34.0); MCHC 31.9 g/dL (28.0-37.0); MCV 90.1 fL (80.0-100.0); PLATELET COUNT 330 thou/uL (150-400); RBC 2.65 mil/uL (4.20-5.00); RDW 14.8 % (10.5-14.5); WBC 14.5 thou/uL (4.0-11.0)
[2019-09-13 20:51] LABS: CREATININE 0.6 mg/dL (0.6-1.0); POTASSIUM 3.8 mmol/L (3.5-5.1); TOTAL BILIRUBIN 0.3 mg/dL (<0.1-1.0)
[2019-09-13 20:55] LABS: CALCIUM 9.3 mg/dL (8.5-10.1)
[2019-09-13 21:22] LABS: ABSOLUTE NEUTROPHILS 12.5 thou/uL (1.4-8.2)
[2019-09-13 21:23] LABS: PLATELET ESTIMATE NORMAL
[2019-09-13 21:59] LABS: INR 1.2
[2019-09-13 22:51] LABS: HEMATOCRIT 22.9 % (37.0-47.0); HEMOGLOBIN 7.2 gm/dL (12.0-15.0)
[2019-09-13 23:05] LABS: APTT 25.5 Seconds (24.5-32.8)
[2019-09-13 23:13] VITALS: BP 137/73
[2019-09-14] VITALS (45 sets, daily range): BP systolic 84–127; BP diastolic 40–84
[2019-09-14 05:46] LABS: HEMOGLOBIN 6.7 gm/dL (12.0-15.0); MCHC 31.5 g/dL (28.0-37.0); RDW 14.6 % (10.5-14.5)
[2019-09-14 05:52] LABS: CALCIUM 8.1 mg/dL (8.5-10.1); POTASSIUM 4.5 mmol/L (3.5-5.1)
[2019-09-14 05:55] LABS: HEMATOCRIT 21.2 % (37.0-47.0); MCH 28.8 pg (26.0-34.0); MCV 91.3 fL (80.0-100.0); RBC 2.32 mil/uL (4.20-5.00); WBC 21.2 thou/uL (4.0-11.0)
[2019-09-14 14:58] LABS: HEMATOCRIT 23.8 % (37.0-47.0); HEMOGLOBIN 7.7 gm/dL (12.0-15.0)
--- NOTE | 2019-09-14 17:10 | EKG ---
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 : 1955 Requested By: Levar Marin Order Number: [id number] MD: Temo Fowler Measurements Intervals Armstrong Rate: 66 P: 35 IA: 164 QRS: 9 QRSD: 90 T: 33 QT: 411 QTc: 431 Interpretive Statements Sinus rhythm No significant abnormality Compared to ECG 09/04/2019 17:41:46 No significant changes Electronically Signed On 09-14-2019 17:09:37 [employer] by Temo Fowler [email or web address] <ELECTRONICALLY SIGNED> By: Temo Fowler MD, [facility] 09/14/19 1709 1837 36 Temo Fowler MD, FACC /EPI
[2019-09-14 20:46] LABS: HEMATOCRIT 21.7 % (37.0-47.0); HEMOGLOBIN 7.2 gm/dL (12.0-15.0)
[2019-09-15] VITALS (23 sets, daily range): BP systolic 115–146; BP diastolic 48–71
[2019-09-15 05:51] LABS: HEMATOCRIT 20.3 % (37.0-47.0); MCV 90.3 fL (80.0-100.0); RBC 2.25 mil/uL (4.20-5.00)
[2019-09-15 05:53] LABS: HEMOGLOBIN 6.5 gm/dL (12.0-15.0); MCHC 32.1 g/dL (28.0-37.0); RDW 15.1 % (10.5-14.5); WBC 17.9 thou/uL (4.0-11.0)
[2019-09-15 06:18] LABS: ALBUMIN 1.8 g/dL (3.4-5.0); CALCIUM 7.6 mg/dL (8.5-10.1); CREATININE 0.7 mg/dL (0.6-1.0); POTASSIUM 4.5 mmol/L (3.5-5.1); TOTAL BILIRUBIN 0.4 mg/dL (<0.1-1.0); TOTAL PROTEIN 5.5 g/dL (6.4-8.2)
[2019-09-15 09:28] LABS: APTT 28.4 Seconds (24.5-32.8); FIBRINOGEN 527.4 mg/dL (210-360); INR 1.1; PROTIME 11.4 Seconds (9.3-11.4)
[2019-09-15 18:50] LABS: HEMATOCRIT 22.1 % (37.0-47.0); HEMOGLOBIN 7.2 gm/dL (12.0-15.0)
[2019-09-16 00:11] VITALS: BP 122/60
[2019-09-16 04:31] VITALS: BP 156/71
[2019-09-16 05:55] LABS: HEMATOCRIT 25.4 % (37.0-47.0); HEMOGLOBIN 8.2 gm/dL (12.0-15.0); MCH 29.4 pg (26.0-34.0); MCHC 32.3 g/dL (28.0-37.0); MCV 91.1 fL (80.0-100.0); RBC 2.79 mil/uL (4.20-5.00); RDW 14.8 % (10.5-14.5); WBC 20.4 thou/uL (4.0-11.0)
[2019-09-16 06:26] LABS: ALBUMIN 1.9 g/dL (3.4-5.0); CALCIUM 8.1 mg/dL (8.5-10.1); CREATININE 0.5 mg/dL (0.6-1.0); POTASSIUM 4.2 mmol/L (3.5-5.1); TOTAL BILIRUBIN 0.7 mg/dL (<0.1-1.0); TOTAL PROTEIN 5.8 g/dL (6.4-8.2)
[2019-09-16 08:09] VITALS: BP 139/70
[2019-09-16 15:40] VITALS: BP 127/70
[2019-09-16 20:46] VITALS: BP 124/70
[2019-09-17 03:41] VITALS: BP 131/75
[2019-09-17 05:31] LABS: HEMATOCRIT 24.2 % (37.0-47.0); HEMOGLOBIN 7.8 gm/dL (12.0-15.0); MCH 29.3 pg (26.0-34.0); MCHC 32.2 g/dL (28.0-37.0); RBC 2.66 mil/uL (4.20-5.00); RDW 15.2 % (10.5-14.5); WBC 18.2 thou/uL (4.0-11.0)
[2019-09-17 08:15] VITALS: BP 103/76
[2019-09-17 12:42] VITALS: BP 109/62
[2019-09-17 18:36] VITALS: BP 119/61
[2019-09-18 00:48] LABS: BE(vivo) 1.2 mmol/L (-2 to +3); HCO3 25.4 mmol/L (22.0-26.0); PCO2 38.1 mmHg (35.0-45.0); PO2 90.9 mmHg (80.0-100.0); pH 7.441 (7.360-7.450); sO2 97.2 % (92.0-98.0)
[2019-09-18 03:57] LABS: HEMOGLOBIN 8.4 gm/dL (12.0-15.0); MCH 29.4 pg (26.0-34.0); MCHC 32.4 g/dL (28.0-37.0); MCV 90.8 fL (80.0-100.0); RBC 2.86 mil/uL (4.20-5.00); RDW 14.9 % (10.5-14.5); WBC 16.2 thou/uL (4.0-11.0)
[2019-09-18 04:01] LABS: ALBUMIN 2.1 g/dL (3.4-5.0); CALCIUM 8.7 mg/dL (8.5-10.1); CREATININE 0.6 mg/dL (0.6-1.0); POTASSIUM 3.8 mmol/L (3.5-5.1); TOTAL BILIRUBIN 0.6 mg/dL (<0.1-1.0); TOTAL PROTEIN 6.9 g/dL (6.4-8.2)
[2019-09-18 05:52] VITALS: BP 113/63
[2019-09-18 16:00] VITALS: BP 124/70
[2019-09-18 20:15] VITALS: BP 115/56
[2019-09-19 04:41] LABS: HEMATOCRIT 22.9 % (37.0-47.0); HEMOGLOBIN 7.4 gm/dL (12.0-15.0); MCH 29.1 pg (26.0-34.0); MCHC 32.2 g/dL (28.0-37.0); MCV 90.5 fL (80.0-100.0); RBC 2.53 mil/uL (4.20-5.00); RDW 14.9 % (10.5-14.5); WBC 11.3 thou/uL (4.0-11.0)
[2019-09-19 04:45] VITALS: BP 124/67
[2019-09-19 04:54] LABS: ALBUMIN 1.7 g/dL (3.4-5.0); CALCIUM 8.4 mg/dL (8.5-10.1); CREATININE 0.4 mg/dL (0.6-1.0); MAGNESIUM 1.6 mg/dL (1.8-2.4); POTASSIUM 3.6 mmol/L (3.5-5.1); TOTAL BILIRUBIN 0.5 mg/dL (<0.1-1.0); TOTAL PROTEIN 5.8 g/dL (6.4-8.2)
--- NOTE | 2019-09-19 06:55 | HC ---
[facility] [place] [address] CONSULTATION Name: JOY ANDERSON Room #: 205-P ADM IN M.R.#: [id number] Admission: 09/13/19 Attend Phys: Berto Kemp MD Discharge: Date of : 59 Report #: [id number] THIS REPORT FOR: //name// CC: Berto Nixon [facility] physician/PCP RAVEN KEEN DO REQUESTING PHYSICIAN: Berto Kemp MD REASON FOR CONSULTATION: Postop delayed bleeding. HISTORY OF PRESENT ILLNESS: The patient is a 64-year-old female who was admitted to the hospital back in about 09/04 with abdominal pain, found to have appendicitis. She went to surgery. They think it may have probed at the time of surgery. She had extensive lysis of adhesions in multiple areas. They also had seen some abnormalities in the liver, which she underwent a biopsy, I think, of segment 5. This came back revealing some scar tissue. The patient is known to have steatosis from the past. She had been at home and then prior to had readmission on 09/13, she had been having abdominal pain and some bloating. CAT scan here showed what appeared to be extensive subcapsular hematoma as well as peritoneal blood, particularly in the upper abdomen. There was also thought to be some active extravasation of contrast in the more anterior of the liver lacerations and possibly small amount into one or more of the posterior liver lacerations. The patient denies any new headaches, new swallowing troubles, diarrhea, constipation, abdominal trauma. She states that the ecchymosis on her lower legs have been present off and on for about 20 years. She also denies any use of her nonsteroidals such as aspirin that she had been on her fish oil since she went home. She has not taken any Advil new per any other type of medications. Here, her hemoglobin on admit was about 6.7. She has received a pint of blood and her hemoglobin is now 6.5, white count 17.9, platelets 339. PT and aPTT have been essentially normal. The patient denies any bleeding from her mouth, her nares, urinary. PAST MEDICAL HISTORY: Notable for the recent appendectomy with perforation and then also the extensive lysis of adhesions, liver biopsy. Also, history of hysterectomy some 20 years ago without bleeding. History of liver biopsy about 5 years ago without any bleeding. No bleeding with dental procedures. Also, has a history of recent elevated liver function test. Also, hepatic steatosis. 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 Also, history of Sjogren's, history of urinary difficulties, history of asthma, history of chronic sinusitis. FAMILY HISTORY: She says no one else in the family has had any bleeding disorders that she is aware including her siblings, children, mother and father. 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 PHYSICAL EXAMINATION: VITAL SIGNS: Height is 5 feet 7 inches, which is 170 cm. Weight 233 pounds, which is 101.2 kilograms. Temperature recent 99.4 at midnight. Blood pressure 135/54. O2 sat was 95%. Pulse 92. MOOD: She is alert and pleasant. NEUROLOGIC: Face is symmetric. Speech and thought pattern normal. She is moving arms and fingers well. HEAD AND NECK: Oropharynx is clear, without any petechia or bleeding. Nares without any signs of bleeding. LYMPHATICS: No enlarged lymph nodes in the supraclavicular or cervical region. ABDOMEN: Obese, slightly tender. She thinks it is actually maybe less full and less tender than yesterday. EXTREMITIES: Without clubbing or cyanosis. Note that she does have the ecchymosis on both lower extremities. LABORATORY DATA: Lab review here notable for creatinine of 0.7. Note that transaminases yesterday; on last admit AST was 19, on admit 161, today this morning is 2494. Total bilirubin normal, alkaline phosphatase 165. ALT was 30 last admit, 111 on admit, 2553 today. Albumin 1.7. INR this admit 1.2 with a protime of 12, APTT at 25.5. As mentioned above, white count 17.9; hemoglobin 6.5, was about 6.7 yesterday, has had a unit of blood. Platelets as mentioned above were normal. Differential without acute changes. ASSESSMENT AND PLAN: 1. Evidence of subcapsular hematoma and bleeding would include some possible extravasation into postop changes. We will repeat coags including PT, aPTT, thrombin time, fibrinogen and also platelet function analysis. Given the patient's past history of surgeries without bleeding and no active bleeding at the time of surgery, it is not likely related to that. It is possible that the patient could have a form of Von Willbrand to the delayed bleeding, though she did not have troubles in the past. We will check about ordering these miscellaneous tests though they may be hard to interpret with the current bleeding taking place and there is no family history reported. Transfuse as needed. 2. Elevated liver function test. We will consult GI. Await repeat imaging. 3. History of lupus, defer to others. 4. History of diabetes type 2, defer to others. 5. Hypertension and hyperlipidemia per others. We will follow with you. <ELECTRONICALLY SIGNED> By: Rakesh Schmid MD 09/19/19 0655 0907 1334 Rakesh Schmid MD /nt
[2019-09-19 07:30] VITALS: BP 142/70
[2019-09-19] MEDS ORDERED: OXYCODONE HCL10 MG PO (11:43)
[2019-09-19 12:15] VITALS: BP 133/64
[2019-09-19 12:35] VITALS: BP 142/70
[2019-09-19 14:57] VITALS: BP 142/70
== END 2019-09-19 16:00 | disposition home health service (06) | DRG 441 ==
LOC: ER 18:32 → ICU 22:45 → EROBS 22:45 → ICU 09-14 00:31 → 2N 09-16 14:55 → ENTRNSPT 09-19 11:53 → EDTRNSPTSTS 09-19 11:54 → 4S 09-19 12:12 → EDTRNSPT 09-19 15:34 → 4S 09-19 16:00
PROVIDERS: Emergency Medicine; Internal Medicine; Internal Medicine Gastroenterology; Internal Medicine Hematology & Oncology; Nurse Practitioner; Nurse Practitioner Acute Care; Nurse Practitioner Family; Surgery; ADMIT Hospitalist
PROC: B4121ZZ Fluoroscopy of Hepatic Artery using Low Osmolar Contrast (ICD-10-PCS; 2019-09-13)
PROC: 30233N1 Transfusion of Nonautologous Red Blood Cells into Peripheral Vein, Percutaneous Approach (ICD-10-PCS; principal; 2019-09-14)
DX: K76.89 Other specified diseases of liver (principal); G92 Toxic encephalopathy; K65.1 Peritoneal abscess; K66.1 Hemoperitoneum; S36.113A Laceration of liver, unspecified degree, initial encounter; D62 Acute posthemorrhagic anemia; D84.9 Immunodeficiency, unspecified; S36.112A Contusion of liver, initial encounter; D80.1 Nonfamilial hypogammaglobulinemia; E87.1 Hypo-osmolality and hyponatremia; E11.9 Type 2 diabetes mellitus without complications; M35.00 Sjogren syndrome, unspecified; G51.0 Bell's palsy; F32.9 Major depressive disorder, single episode, unspecified; X58.XXXA Exposure to other specified factors, initial encounter; F41.9 Anxiety disorder, unspecified; E03.9 Hypothyroidism, unspecified; I10 Essential (primary) hypertension; R79.89 Other specified abnormal findings of blood chemistry; E78.5 Hyperlipidemia, unspecified; K59.00 Constipation, unspecified; E66.9 Obesity, unspecified; K76.0 Fatty (change of) liver, not elsewhere classified; J45.909 Unspecified asthma, uncomplicated; J32.9 Chronic sinusitis, unspecified; R23.3 Spontaneous ecchymoses; Y92.89 Other specified places as the place of occurrence of the external cause; Z90.89 Acquired absence of other organs; Z90.710 Acquired absence of both cervix and uterus; Z90.721 Acquired absence of ovaries, unilateral; Z87.440 Personal history of urinary (tract) infections; Z79.82 Long term (current) use of aspirin; Z79.84 Long term (current) use of oral hypoglycemic drugs; Z79.891 Long term (current) use of opiate analgesic; Z79.899 Other long term (current) drug therapy; Y93.89 Activity, other specified; Y99.8 Other external cause status; Z68.37 Body mass index [BMI] 37.0-37.9, adult
CPT/HCPCS: 10078; 10081; 85076

== ENCOUNTER → 2020-02-09 | Outpatient (CLI) | payer OTHER, MEDICARE ==
[2020-02-09 09:02] LABS: CREATININE 0.7 mg/dL (0.6-1.0)
== END ==
LOC: CAT 01-23 10:51
PROVIDERS: ATTEND Surgery
DX: M79.81 Nontraumatic hematoma of soft tissue (principal); I70.0 Atherosclerosis of aorta; M51.36 Other intervertebral disc degeneration, lumbar region; M48.061 Spinal stenosis, lumbar region without neurogenic claudication; Z90.710 Acquired absence of both cervix and uterus; Z90.722 Acquired absence of ovaries, bilateral

== ENCOUNTER → 2020-06-13 | Outpatient (CLI) | payer OTHER, MEDICARE | LOC: CAT 09:04 | PROVIDERS: ATTEND Surgery | DX: K43.2 Incisional hernia without obstruction or gangrene (principal); K82.8 Other specified diseases of gallbladder; K76.89 Other specified diseases of liver ==

== ENCOUNTER → 2020-12-13 | Outpatient (CLI) | payer OTHER, MEDICARE ==
[~2020-12-13] MED LIST changes: +ACYCLOVIR 800800 MG PO; -AMBIEN 10 MG TA10 MG; +ASPIRIN EC325 M1 PO; +ATORVASTATIN CA10 MG PO; +FOLIC ACID1 MG PO; -GLUCOPHAGE1000 MG; +GLUCOPHAGE1000 MG PO; -HYDROXYCHLOROQ200 M1; +HYDROXYCHLOROQ200 M1 PO; +LORAZEPAM 0.50.5 MG PO; +METHENAMINE MAND1 G2 PO; +OZEMPIC1 MG/0.75 SUBQ; +SYNTHROID25 MC1 PO
== END ==
LOC: LAB 13:28
PROVIDERS: ATTEND Surgery
DX: Z01.812 Encounter for preprocedural laboratory examination (principal); Z20.822 Contact with and (suspected) exposure to COVID-19

== ENCOUNTER 2020-12-17 06:25 | Inpatient (IN) | payer OTHER, MEDICARE ==
[~2020-12-17] VITALS: Ht 160 cm; Wt 73.2 kg
[2020-12-17] VITALS (8 sets, daily range): BP systolic 103–129; BP diastolic 62–81
[2020-12-17 07:23] LABS: HEMATOCRIT 41.5 % (37.0-47.0); HEMOGLOBIN 13.4 gm/dL (12.0-15.0); MCH 30.5 pg (26.0-34.0); MCHC 32.2 g/dL (28.0-37.0); MCV 94.6 fL (80.0-100.0); RBC 4.39 mil/uL (4.20-5.00); RDW 14.2 % (10.5-14.5); WBC 7.1 thou/uL (4.0-11.0)
[2020-12-17 07:25] LABS: CALCIUM 9.2 mg/dL (8.5-10.1); CREATININE 0.9 mg/dL (0.6-1.0); POTASSIUM 4.2 mmol/L (3.5-5.1)
--- NOTE | 2020-12-17 08:10 | EKG ---
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 : 1955 Requested By: Abisai Joseph Order Number: [id number] MD: Temo Fowler Measurements Intervals [place] Rate: 70 P: 36 OK: 159 QRS: 19 QRSD: 87 T: 51 QT: 396 QTc: 428 Interpretive Statements Sinus rhythm Abnormal R-wave progression, early transition Baseline wander in lead(s) V1 Compared to ECG 09/13/2019 18:37:43 No significant changes Electronically Signed On 12-17-2020 8:10:24 CDT by Temo Fowler [email or web address] <ELECTRONICALLY SIGNED> By: Temo Fowler MD, [facility] 12/17/20809 2 2 Temo Fowler MD, [facility] /EPI
--- NOTE | 2020-12-17 15:15 | NUR ---
PT ADMITTED RELATED TO HERNIA REPAIR. CM REVIEWED CHART AND SPOKE WITH CARE TEAM. CM MET WITH PT AND SPOUSE AT BEDSIDE THIS DAY. PT APPEARED TO BE A&O X4. CM ROLE INTRODUCED. PT INDICATED SHE LIVES IN A HOUSE WITH HER SPOUSE WITH 2 STEPS TO ENTER AND NO STEPS INSIDE. 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 PT INDICATED SHE PLANS TO RETURN HOME ONCE MEDICALLY STABLE. CM TO FOLLOW INDICATED WITH DC PLANNING.
--- NOTE | 2020-12-17 17:07 | NUR ---
ASSUMED CARE OF PT XFER FORM SURGERY. PT ADMITTED POST SURGICAL FOR ABDOMINAL HERNIA REPAIR. PT IS A/OX4. ABD BINDER AND CDI DRESSING ON ABD AREA. SKIN INTACT WITHOUT TENTING. LUNGS CLEAR ALL CABEZAS, ABD TENDER X4 QUADS AITH ACTIVE BOWEL SOUNDS. CR<3SEC, FALL RISK SOCKS ON, DISTAL PULSES 2+X4.ASSESSMENT OTHERWISE UNREMARKABLE. PT HAS BEEN C/O ABD PAIN WAS GIVEN OXY WITH LITTLE TO NO RELIEF. CALL LIGHT AND NEEDS WITHIN REACH.
--- NOTE | 2020-12-17 20:02 | NUR ---
PT WAS BROUGHT UP FROM PACU AT 1343 THIS AFTERNOON AFTER ABDOMINAL HERNIA SURGERY. P HAS ABD BINDING AND 2-RUBIO DRAINS FROM THE MID ABD AREA. PT IS A/OX4. EYES PERRLS, SKIN INTACT, NO TENTING, W/D/P, LUNGS CLEAR ALL CABEZAS, BOWEL SOUNDS ACTIVE IN ALL QUADS. DISTAL PULSES 2+ X4, MOTOR SENSORY INTACT AND C/O PAIN THE THE ABD ALL OVER. PT WAS GIVEN PAIN RX. ASSESSMENT OTHERWISE UNRREMARKABLE. IV IN RIGHT HAND. CALL LIGHT AND OTHER NEEDS WITHIN REACH.
--- NOTE | 2020-12-18 06:00 | NUR ---
Pt. has had very little rest during the night. She c/o chronic abdominal pain and has been medicated for pain several times (see emar). C/o itching and Ivana EMG TECHNICIAN was called and order received for po benadryl (see cpoe). RUBIO drains to abdomen are intact. Midline incision dry and intact. Pt. did dangle at the bedside several times and did well.
[2020-12-18 06:01] LABS: HEMATOCRIT 35.2 % (37.0-47.0); MCH 30.7 pg (26.0-34.0); MCHC 32.4 g/dL (28.0-37.0); MCV 94.8 fL (80.0-100.0); RBC 3.72 mil/uL (4.20-5.00); RDW 14.2 % (10.5-14.5); WBC 8.1 thou/uL (4.0-11.0)
[2020-12-18 06:16] LABS: HEMOGLOBIN 11.4 gm/dL (12.0-15.0)
[2020-12-18 06:19] LABS: ALBUMIN 2.8 g/dL (3.4-5.0); CALCIUM 8.4 mg/dL (8.5-10.1); CREATININE 0.6 mg/dL (0.6-1.0); PHOSPHORUS 4.1 mg/dL (2.5-4.9); POTASSIUM 3.9 mmol/L (3.5-5.1)
[2020-12-18 07:48] VITALS: BP 104/62
--- NOTE | 2020-12-18 12:44 | NUR ---
Received awake on bed. Due medications given as prescribed, able to swallow meds w/o difficulty. On room air. Vital signs stable. On telemetry; no complains and signs of chest pain, crushing sensation and heaviness. Assisted in ADLs. On clear liquids- tolerating well; no nausea, no vomiting and no abdominal pain noted. With leiva in place- draining well; output measured and recorded accordingly. With R chest port- accessed; saline locked. With R wrist IV- LR at 100cc/hr, infusing well; on IV antibiotics. With abdominal post op wound- dressing C/D/I; with [address]- output measured and recorded accordingly. With abdominal binder in place. SCDs reapplied. Complained of pain, due PRN pain meds given as prescribed. Encouraged to ambulate- able to walk in the hallway with walker and gait belt; falls bundle in place; pt walked to with CROSSING SUPERVISOR Louisa. As per night RN, IV team informed re: chest port. To continue monitoring patient.
--- NOTE | 2020-12-18 14:56 | NUR ---
CARE TEAM INDICATED THAT PT IS PROGRESSING TOWARD GOAL OF DISCHARGE. WORKING TO GET DRAIN AND PAIN MANAGED. CM FOLLOWING REGARDING DC PLANNING.
[2020-12-18 15:25] VITALS: BP 106/69
[2020-12-18 20:05] VITALS: BP 132/74
--- NOTE | 2020-12-19 05:29 | NUR ---
Pt. did rest quietly during the night when checked on during frequent rounds. At the beginning of the shift she wanted hydrocodone for pain, but one tab of 5 mg ordered. Pt. voiced that she needed 10 mg because 5 mg was like taking a aspirin. New orders received (see cpoe). She has been voiding post leiva re- moval without difficulty. Up to the bathroom with standby assistance.
[2020-12-19 07:33] VITALS: BP 109/69
--- NOTE | 2020-12-19 18:25 | NUR ---
ASSUMED CARE OF PATIENT AT SHIFT CHNAGE; 0700. ASSESSMENT CHARTED. MEDICATIONS ADMINISTERED PER EMAR. VSS. PATIENT IS A&OX4, PLEASANT AND ABLE TO MAKE NEEDS KNOWN. AMBULATES AND TRANSFERS SBA TO BATHROOM; AMBULATED AROUND UNIT X3 AND TOLERATED WELL. C/O PAIN EXACERBATED WITH ACTIVITY RELIEVED X1 THIS SHIFT W IV PAIN MEDICATION AND MANAGED THROUGHOUT WITH PO HYDROCODONE. PATIENT STILL HAS RUBIO DRAINS X2, CONTINUING TO DRAIN THROUGHOUT SHIFT. HOSPITALIST INDICATED D/C OK AFTER REMOVING DRAINS HOWEVER STILL DRAINING QUITE A BIT. SURGEON NOTIFIED AND AGREED PATIENT READY FOR D/C IN 1 TO 2 DAYSP; WILL KEEP RUBIO DRAINS IN FOR NOW. WORKING ON PAIN MANANGEMENT AND PROGRESSING TOWARDS GOAL USING LESS IV PAIN MEDICATION. ADVANCED TO REGULAR DIET FOR DINNNER AND TOLERATING WELL SO FAR. PROGRESSING WELL TOWARD DISCHARGE. FALL PRECAUTIONS IN PLACE. WILL CONTINUE TO MONITOR AND ENDORSE TO NOC. TARUN.
[2020-12-19 19:38] VITALS: BP 115/57
--- NOTE | 2020-12-20 02:44 | NUR ---
PT IS A/O X4 AND IS UP SBA. ROOM AIR. SR/ST ON THE MONITOR. C/O PAIN AND INDIGESTION. PRN MEDICATION GIVEN DIRECTED. VSS. AFEBRILE. RUBIO DRAINS IN PLACE AND DRAINING RED DRAINAGE. ABDOMINAL BINDER IN PLACE. INCISION INTACT WITH NO DRAINAGE. CALL LIGHT IS WITHIN REACH. PT IS PROGRESSING TOWARDS PLAN OF CARE DC GOALS. WILL CONTINUE TO MONITOR.
[2020-12-20 07:00] VITALS: BP 130/75
--- NOTE | 2020-12-20 11:07 | PATH ---
[facility] [address] [place] [address] PATHOLOGY RPT PROCEDURE Name: JOY BUENROSTRO Room #: 454-P ADM IN M.R.#: [id number] Admission: 12/17/20 Date of : 59 Discharge: Report #: [id number] Path Case #: [id number] [facility] Accession Number: [id number] . 01 Material submitted: . hernia - HERNIA SAC . 01 Clinical history: . ABDOMINAL COMPONENT SEPARATION OPEN HERNIA REPAIR,VENTRAL VENTRAL INCISIONAL HERNIA . 02 Diagnosis: Hernia sac, repair: - Fibrovascular connective tissue and fibroadipose connective tissue with reactive changes, compatible with a hernia sac. (IUV:rosalva; 12/19/2020) QMS 12/19/2020 1543 Local . 02 Electronically signed: . Gely Santiago MD, Pathologist NPI- [id number] . 01 Gross description: . The specimen is received in formalin, labeled "Joy Buenrostro, hernia sac". Received are multiple segments of fibromembranous tissue with attached fibroadipose tissue measuring 15.4 x 7.5 x 2.5 cm in aggregate dimensions. No distinct nodules or lesions are noted grossly. The specimen is submitted representatively in cassette A1. (CAA; 12/18/2020) QA/[facility] 12/18/2020 1254 Local . 02 Pathologist provided ICD-10: K43.9 . 02 CPT . 677785 Specimen Comment: A courtesy copy of this report has been sent to [phone], [phone]- Specimen Comment: [phone] Specimen Comment: Report sent to / DR DOZIER Performed at: [address] [id number] MD Shaan Block MD Phone: [phone] Performed at: 02 [facility] [address] [place] [address] PATHOLOGY RPT PROCEDURE Name: JOY BUENROSTRO Room #: 454-P ADM IN M.R.#: [id number] Admission: 12/17/20 Date of : 59 Discharge: Report #: [id number] Path Case #: [id number] [address] [place] [address] [id number] MD Gely Santiago MD Phone: [phone]
[2020-12-20 15:20] LABS: ALBUMIN 2.5 g/dL (3.4-5.0); DIRECT BILIRUBIN < 0.1 mg/dL (<0.1-0.2); SGOT 42 U/L (15-37); SGPT 54 U/L (14-59); TOTAL BILIRUBIN 0.2 mg/dL (0.2-1.0); TOTAL PROTEIN 5.8 g/dL (6.4-8.2)
[2020-12-20 16:20] VITALS: BP 113/70
--- NOTE | 2020-12-20 16:29 | NUR ---
CARE TEAM INDICATED THAT PT IS PROGRESSING SLOWLY TOWARD GOAL OF DISCAHRGE. PT IS HAVING MORE OUTPUT FROM DRAIN AND PAIN ISN'T YET WELL CONTROLLED. CM FOLLOWING REGARDING DC PLANNING.
[2020-12-20 19:59] VITALS: BP 134/80
--- NOTE | 2020-12-20 20:35 | NUR ---
PATIENT ALERT/ORIENTED. COMPLAINS OF PAIN THROUGH OUT THE DAY, OTHERWISE FEELS WELL AND READY TO DISCHARGE JUST NERVOUS ABOUT PAIN CONTROL. AMBULATES IN ROOM AND HALLWAYS INDEPENDENTLY. GOOD APPETITE. MARKOS DRAINX2, EDUCATED PATIENT ON HOW TO EMPTY DRAINS SHE WOULD TOLD SHE WOULD DISCHARGE WITH THEM. PLAN FOR PATIENT TO DISCHARGE TOMORROW IF PAIN CAN BE ADEQUATELY MANAGED.
--- NOTE | 2020-12-21 05:00 | NUR ---
patient aox4 makes needs known.pain controlled this shift. abd incicision is proximal, no drainage, no s/s of infection noted this shift. two han drainage are intact. patient ambulates with steady gate in the room and hallway. patient encouraged fluids. patient in bed asleep at this time breathing regular and unlaboured.
[2020-12-21 07:44] VITALS: BP 122/77
[2020-12-21] MEDS ORDERED: PERCOCET 10-321 EAC1 PO (10:55)
--- NOTE | 2020-12-21 11:17 | NUR ---
Received awake on bed. Due medications given as prescribed, able to swallow meds w/o difficulty. On room air. Vital signs stable. On telemetry; no complains and signs of chest pain, crushing sensation and heaviness. Assisted in ADLs. On regular diet- tolerating well; no nausea, no vomiting and no abdominal pain noted. S/P hernia repair; midline incision C/D/I, no bleeding and no drainage noted; abdominal binder in place. On blood sugar monitoring, taken and recorded accordingly. Continent of bowel and bladder, able to go to the toilet independently. With L chest port, accessed- saline locked. Able to ambulate in the hallway. Complained of pain, due PRN pain meds given as prescribed. Pt seen and examined by Dr Hobbs- discharge orders made. To continue monitoring patient.
[2020-12-21 11:22] VITALS: BP 122/77
--- NOTE | 2020-12-21 11:55 | NUR ---
CARE TEAM INDICATED THAT PT IS MEDICALLY STABLE TO DC HOME THIS DAY. PT IS TO DC HOME TO SELF CARE. PT'S SPOUSE TO PROVIDE TRANSPORT HOME. NO OTHER CM INTERVENTION INDICATED. CASE CLOSED.
== END 2020-12-21 13:00 | disposition home or self-care (01) | DRG 335 ==
LOC: OR 06:25 → TBA 06:33 → OR 10:57 → 4W 13:58 → OR 13:59 → 4W 12-21 13:00
PROVIDERS: Anesthesiology; Hospitalist; ADMIT Surgery; ATTEND Surgery
PROC: 0DNU0ZZ Release Omentum, Open Approach (ICD-10-PCS; principal; 2020-12-17)
PROC: 0DNW0ZZ Release Peritoneum, Open Approach (ICD-10-PCS; principal; 2020-12-17)
PROC: 0WQF0ZZ Repair Abdominal Wall, Open Approach (ICD-10-PCS; principal; 2020-12-17)
PROC: 0WUF0JZ Supplement Abdominal Wall with Synthetic Substitute, Open Approach (ICD-10-PCS; principal; 2020-12-17)
DX: K43.2 Incisional hernia without obstruction or gangrene (principal); G92 Toxic encephalopathy; D80.1 Nonfamilial hypogammaglobulinemia; D62 Acute posthemorrhagic anemia; S36.112A Contusion of liver, initial encounter; M35.00 Sjogren syndrome, unspecified; E11.9 Type 2 diabetes mellitus without complications; K66.0 Peritoneal adhesions (postprocedural) (postinfection); E78.5 Hyperlipidemia, unspecified; J45.909 Unspecified asthma, uncomplicated; R74.01 Elevation of levels of liver transaminase levels; E03.9 Hypothyroidism, unspecified; K76.0 Fatty (change of) liver, not elsewhere classified; K59.00 Constipation, unspecified; F32.9 Major depressive disorder, single episode, unspecified; F41.9 Anxiety disorder, unspecified; I10 Essential (primary) hypertension; Z90.710 Acquired absence of both cervix and uterus; Z90.721 Acquired absence of ovaries, unilateral; X58.XXXA Exposure to other specified factors, initial encounter; Y93.89 Activity, other specified; Y92.89 Other specified places as the place of occurrence of the external cause; Y99.8 Other external cause status; Z79.899 Other long term (current) drug therapy; Z88.2 Allergy status to sulfonamides
CPT/HCPCS: 10045; 10047; 50010; 50101; 50331; 50386; 50417; 56524; 56525; 56526; 56529; 57108; 58637; 62110; 62900; 70005